=== PATIENT | male | born 1990 | race Caucasian/White ===

== ENCOUNTER 2016-11-26 23:25 | Emergency (ER) | payer BC ==
[~2016-11-26] VITALS: Ht 188 cm; Wt 78.2 kg
[~2016-11-26 23:25] MED LIST: CABE0.5T PO; MULT-506 PO
[2016-11-26 23:33] VITALS: Ht 188 cm; Wt 78.2 kg
[2016-11-26] MEDS ORDERED: DiphenhydrAMINE HCL 50 MG/ML VIAL IV STA (23:41)
[2016-11-26] MEDS ORDERED: LORAZEPAM 2 MG/ML 1 ML VIAL IV STA (23:41)
[2016-11-26] MEDS ORDERED: SODIUM CHLORIDE 0.9% 1000ML 2,000 ML IV STA (23:41)
[2016-11-26] MEDS ORDERED: METOCLOPRAMIDE HCL INJ 5 MG/ML 2 ML VIAL IV STA (23:41)
[2016-11-27] MEDS ORDERED: CABE0.5T PO (00:03)
[2016-11-27 00:13] LABS: HEMATOCRIT 42.1 % (42-52); MEAN CELL VOLUME 87.7 fL (80-100); MEAN CORPUSCULAR HEMOGLOBIN 32.3 pg (25-34); MEAN CORPUSCULAR HGB CONC 36.8 g/dl (32-36); MEAN PLATELET VOLUME 9.5 fL (7.4-10.4); PLATELET COUNT 276 K/uL (130-400); WHITE BLOOD COUNT 12.05 K/uL (4.8-10.8)
[2016-11-27 00:16] VITALS: O2SAT 100
[2016-11-27 00:32] LABS: BUN/CREATININE RATIO 11.9 (10-20); CREATININE 1.2 mg/dl (0.60-1.40); POTASSIUM 3.7 mmol/L (3.5-5.1)
[2016-11-27 01:22] LABS: BASO % 0.2 %; BASO ABS # 0.02 K/uL (0-0.2); COMPLETE YES; EOS % 0.3 %; IG% 0.2 %; LYMPH % 7.6 %; LYMPH ABS # 0.91 K/uL (1.2-3.4); MONO % 3.9 %; NEUT % 87.8 %
[2016-11-27] MEDS ORDERED: ONDANSETRON HOME PACK 4MG OD TAB PO ONE (02:00)
--- NOTE | 2016-11-27 02:00 | EMERGENCY ROOM VISIT NOTE ---
History First contact with patient: 23:32 Chief Complaint: VOMITING Stated Complaint: VOMITING,NUMBNESS,STOMACH FLU History of Present Illness The patient is a 26 year old male who presents to the Emergency Room with complaints of nausea, vomiting and epigastric discomfort for the past few hours. No blood or black in a the vomit. Multiple episodes of vomiting. Patient is hyperventilating. Patient denies chest pain, dyspnea, fever, chills , headache, vision changes, weakness, back pain, urinary symptoms. No recent travel. He's had some loose stool but no diarrhea. No recent antibiotics. Patient complains of tingling to his hands and feet who is currently hyperventilating. Review of Systems See HPI for pertinent positives & negatives. A total of 10 systems reviewed and were otherwise negative. Past Medical/Surgical History Low prolactin Family History No pertinent family history Social History Smoking Status: Never Smoker Smokeless Tobacco Use: No Alcohol Use: occasionally Drug Use: none Marital Status: Housing Status: lives with family Occupation Status: [employer] student Current/Historical Medications Scheduled Cabergoline (Cabergoline), 0.5 MG PO 2XWK Allergies Coded Allergies: No Known Allergies (Unverified , 08/22/15) Physical Exam Vital Signs Date Time Temp Pulse Resp B/P Pulse Ox O2 Delivery O2 Flow Rate FiO2 11/27/16 01:23 92 20 114/58 100 Room Air 11/27/16 00:18 101 24 116/70 100 Room Air 11/27/16 00:16 100 Room Air 11/27/16 00:16 97 11/26/16 23:33 91 24 131/68 94 Room Air Physical Exam VITALS: Vitals are noted on the nurse's note and reviewed by myself. Vital signs stable. GENERAL: White male anxious-appearing hyperventilating, in no acute distress, nondiaphoretic, well-developed well-nourished. SKIN: The skin was without rashes, erythema, edema, or bruising. There is no tenting of the skin. Capillary reflex less than 2 seconds. HEAD: Normocephalic atraumatic. EARS: External auditory canals clear, tympanic membranes pearly jalloh without erythema or effusion bilaterally. EYES: Pupils equal round and reactive to light and accommodation. Conjunctivae without injection, sclerae without icterus. Extraocular movements intact. NOSE: Patent, turbinates without inflammation or discharge. MOUTH: Mucous membranes mildly dry. Pharynx without erythema or exudate. Uvula midline. Airway patent. Tongue does not deviate. NECK: Supple without nuchal rigidity. No lymphadenopathy. No thyromegaly. Cervical spine is nontender. No JVD. HEART: Regular rate and rhythm without murmurs gallops or rubs. LUNGS: Clear to auscultation bilaterally without wheezes, rales or rhonchi. No dullness to percussion. No retractions or accessory muscle use. ABDOMEN: Positive bowel sounds x 4. Normal tympanic percussion. Soft, nontender, without masses or organomegaly. Lee sign negative. No guarding or rebound tenderness. No CVA tenderness MUSCULOSKELETAL: No muscle atrophy, erythema, or edema noted. NEURO: Patient was alert and oriented to person place and time. Normal sensation to light and sharp touch. No focal neurological deficits. Medical Decision & Procedures Laboratory Results 11/26/16 23:55 Red Blood Count 4.80, Mean Corpuscular Volume 87.7, Mean Corpuscular Hemoglobin 32.3, Mean Corpuscular Hemoglobin Concent 36.8, Mean Platelet Volume 9.5, Neutrophils (%) (Auto) 87.8, Lymphocytes (%) (Auto) 7.6, Monocytes (%) (Auto) 3.9, Eosinophils (%) (Auto) 0.3, Basophils (%) (Auto) 0.2, Neutrophils # (Auto) 10.58, Lymphocytes # (Auto) 0.91, Monocytes # (Auto) 0.47, Eosinophils # (Auto) 0.04, Basophils # (Auto) 0.02 11/26/16 23:55 Test 11/26/16 23:55 White Blood Count 12.05 K/uL (4.8-10.8) Red Blood Count 4.80 M/uL (4.7-6.1) Hemoglobin 15.5 g/dL (14.0-18.0) Hematocrit 42.1 % (42-52) Mean Corpuscular Volume 87.7 fL (80-100) Mean Corpuscular Hemoglobin 32.3 pg (25-34) Mean Corpuscular Hemoglobin Concent 36.8 g/dl (32-36) Platelet Count 276 K/uL (130-400) Mean Platelet Volume 9.5 fL (7.4-10.4) Neutrophils (%) (Auto) 87.8 % Lymphocytes (%) (Auto) 7.6 % Monocytes (%) (Auto) 3.9 % Eosinophils (%) (Auto) 0.3 % Basophils (%) (Auto) 0.2 % Neutrophils # (Auto) 10.58 K/uL (1.4-6.5) Lymphocytes # (Auto) 0.91 K/uL (1.2-3.4) Monocytes # (Auto) 0.47 K/uL (0.11-0.59) Eosinophils # (Auto) 0.04 K/uL (0-0.5) Basophils # (Auto) 0.02 K/uL (0-0.2) RDW Standard Deviation 42.2 fL (36.4-46.3) RDW Coefficient of Variation 13.1 % (11.5-14.5) Immature Granulocyte % (Auto) 0.2 % Immature Granulocyte # (Auto) 0.03 K/uL (0.00-0.02) Anion Gap 15.0 mmol/L (3-11) Est Creatinine Clear Calc Drug Dose 104.1 ml/min Estimated GFR () 96.8 Estimated GFR (Non- 83.5 BUN/Creatinine Ratio 11.9 (10-20) Calcium Level 10.0 mg/dl (8.5-10.1) Total Bilirubin 1.2 mg/dl (0.2-1) Direct Bilirubin 0.2 mg/dl (0-0.2) Aspartate Amino Transf (AST/SGOT) 24 U/L (15-37) Alanine Aminotransferase (ALT/SGPT) 30 U/L (12-78) Alkaline Phosphatase 92 U/L (45-117) Total Protein 8.7 gm/dl (6.4-8.2) Albumin 5.2 gm/dl (3.4-5.0) Lipase 114 U/L (73-393) Medications Administered Medications (Trade) Dose Ordered Sig/Kavitha Route Start Time Stop Time Status Last Admin Dose Admin Sodium Chloride (Nss 1000ml) 2,000 ml @ 999 mls/hr Q2H1M STAT IV 11/26/16 23:41 11/27/16 01:41 DC 11/27/16 00:10 999 MLS/HR Metoclopramide HCl (Reglan Inj) 10 mg NOW STAT IV 11/26/16 23:41 11/26/16 23:43 DC 11/27/16 00:09 10 MG Diphenhydramine HCl (Benadryl Inj) 25 mg NOW STAT IV 11/26/16 23:41 11/26/16 23:43 DC 11/27/16 00:09 25 MG Lorazepam (Ativan Inj) 1 mg NOW STAT IV 11/26/16 23:41 11/26/16 23:43 DC 11/27/16 00:09 1 MG ED Course Prior records/ancillary studies reviewed. Triage Nursing notes reviewed. Additional history obtained from the family. The patient's history was concerning for nausea, vomiting,and abdominal pain. Differential diagnosis: Etiologies such as gastroenteritis, food borne illness, infections, appendicitis , diverticulitis, inflammatory bowel disease, obstruction, GI bleed, biliary pathology, as well as others were entertained. Physical examination findings: As above. Abdominal examination revealed no tenderness. Vital signs reviewed and revealed stable. ER treatment provided: IV hydration 2 L NSS. ativan, reglan, benadryl On reassessment the patient felt better. Patient was tolerating p.o. intake. Diagnostics interpretation by me: The labs revealed mild leukocytosis most likely marginalization from vomiting. No worrisome electrolyte abnormality besides mild hyperglycemia most likely stress reaction from vomiting This appears to be consistent with vomiting and diarrhea most likely viral in etiology. Patient felt much better after being medicated as above. He did not have acute abdomen on exam. He was able to tolerate By Mouth Fluids and Requested to Leave. He Was Advised to Do Clear Liquid Diet Today and Then Progress As Tolerated to [place] Diet Tomorrow. He was advised to follow-up family care in a few days or here in the ER sooner for abdominal pain, fevers, vomiting, worsening signs or symptoms or as needed. By the evaluation outlined above emergent etiologies such as appendicitis, diverticulitis, obstruction, cardiac sources, mesenteric ischemia, aortic pathology, inflammatory bowel disease, renal colic, PUD, biliary pathology, UTI, as well as others were deemed relatively unlikely. The pt informed about the findings as listed above. All questions were answered and pleased with the treatment. Return instructions were outlined and the patient was discharged in stable condition. Outpatient prescription management: bobbyan Referral: The patient was referred to their primary care physician for follow-up in 2 to 3 days for a recheck of the current condition. Medical Decision as above Impression Primary Impression: Nausea, vomiting, and diarrhea Departure Information Dispostion Home / Self-Care Condition GOOD Referrals No Doctor, Assigned (PCP) Patient Instructions My [facility] Additional Instructions DO NOT drive, drink alcohol, operate machinery, or perform dangerous activities today. You were given medications in the ER that can affect your ability to safely function or operate a vehicle. Repeat your blood sugar with the family care doctor in a few weeks as it was slightly high today. Zofran(odansetron) tablets 4mg: Take one and allow it to dissolve in your mouth every four to six hours as needed for nausea or vomiting. Acetaminophen(Tylenol) may be used for fever or pain. Use 1000mg every six hours as needed. Avoid using more than 3000mg in a 24 hour period. Rest and drink plenty of fluids as tolerated. Slow sips of water or sports drinks are recommended instead of large amounts all at once. Continue current medications. Once your stomach is settled start with a clear liquid diet (jello, soup broth, etc.) and then advance as tolerated. You should avoid full, heavy meals for about 24 hrs from the time your symptoms resolved. Return to the ER for persistent vomiting, fevers, abdominal pain, chest pains, difficulty breathing, black or bloody stools, worsening of your condition, or as needed. Follow up with your primary physician in 2-3 days for a recheck of your current condition.
[2016-11-27 02:11] VITALS: BP 113/71; PULSE 91; O2SAT 98
== END 2016-11-27 02:12 | disposition home or self-care (01) ==
LOC: C.EDB 23:27 → C.EDA 11-27 02:12
DX: R11.2 Nausea with vomiting, unspecified (principal); R19.7 Diarrhea, unspecified

== ENCOUNTER → 2017-08-06 | Outpatient (CLI) | payer BC ==
[~2017-08-06] MED LIST changes: -MULT-506 PO
== END | disposition home or self-care (01) ==
LOC: C.LAB1850 13:19
PROVIDERS: ATTEND Internal Medicine Endocrinology, Diabetes & Metabolism
DX: E22.1 Hyperprolactinemia (principal); D49.7 Neoplasm of unspecified behavior of endocrine glands and other parts of nervous system